=== PATIENT | female | born 1995 | race Caucasian/White ===

== ENCOUNTER 2016-04-10 10:47 | Emergency (ER) | payer MEDICAID, OTHER ==
[~2016-04-10] VITALS: Ht 160 cm; Wt 53.0 kg
[~2016-04-10 10:47] MED LIST: PREN-39 PO
[2016-04-10 11:19] VITALS: Ht 160 cm; Wt 53.0 kg
[2016-04-10] MEDS ORDERED: FLUT9.9S NASAL (12:40)
[2016-04-10] MEDS ORDERED: PSEU30TA38 PO (12:40)
[2016-04-10] MEDS ORDERED: AZIT250T94 PO (12:40)
--- NOTE | 2016-04-10 16:38 | ERD ---
DATE OF SERVICE: 04/10/2016 HISTORY OF PRESENT ILLNESS: The patient is a 20-year-old female coming in complaining of an earache and runny nose. Patient states that she has had a runny nose for the last 2 weeks. She feels mild ly dizzy. She has not had any fevers, no medication for her symptoms. No sore throat, no cough. H as had excessive nasal congestion. PAST MEDICAL HISTORY: Denies any other medical problems. ALLERGIES: PENICILLIN. SURGICAL HISTORY: Denies. SOCIAL HISTORY: Denies. REVIEW OF SYSTEMS: A 12-point review of systems was done. Refer to HPI for positives, all other sy stems negative. PHYSICAL EXAMINATION VITAL SIGNS: Temperature is 98.1, pulse 88, blood pressure 111/62, respiratory 18, O2 saturation 99 % on room air. Pain intensity of 4/10. GENERAL: The patient is well-appearing, well-nourished, no acute distress. HEENT: The patient has congestion noted to her nasal passages. Her right TM is erythematous with m ild bulging. No perforation. No erythema noted to the external ear canal. Oropharynx clear, uvula midline. No erythema, edema or exudate note to the tonsils. NECK: C-spine is soft and supple. There is no meningismus. There is no cervical lymphadenopathy. N o JVD. No bruits. No goiter. CHEST: Clear to auscultation bilaterally. There are no rales, wheezes or rhonchi. HEART: Regular rate and rhythm. No murmurs, clicks, rubs or gallops. No S3 or S4. ABDOMEN: Soft, nontender and nondistended. Good bowel sounds. No rebound or guarding. No gross dorian tonitis. No gross organomegaly or masses. No Taylor sign or McBurney point tenderness. BACK: No midline or flank tenderness. SKIN: There is no apparent rash or petechia. The skin is warm and dry. HEMATOLOGIC AND LYMPHATIC: There is no evidence of excessive bruising or lymphedema. No gross cervi madeline, axillary, or inguinal lymphadenopathy. DIAGNOSES: 1. Earache or ear infection. 2. To sinus congestion. MEDICAL DECISION MAKING: I have low suspicion for ruptured TM. Low suspicion for otitis externa, l ow suspicion for mastoiditis, low suspicion for meningitis or sepsis, low suspicion for pneumonia, l ow suspicion for other bacterial HEENT infection. Patient will be treated with antibiotics for poss ible ear infection and recommended followup with primary care. DISCHARGE: The patient is discharged stable. Patient given prescription for Sudafed, Flonase and a zithromycin and told to follow up with primary care within 1 to 2 days for reevaluation. The patien t was told if symptoms progress or worsen to return to the ER. All other questions answered at time of discharge. Discharge summary given at the time of departure. Patient understood and complied w ith plan. Dictated By: FRANK BANDA for DRE HARDIN/NTS Conf#: [id number] DID#: [id number]
== END 2016-04-10 13:25 | disposition home or self-care (01) ==
LOC: FTE 10:47
DX: H92.01 Otalgia, right ear (principal); R09.81 Nasal congestion
CPT/HCPCS: 99283

== ENCOUNTER 2016-06-12 11:16 | Emergency (ER) | payer OTHER ==
[~2016-06-12] VITALS: Wt 55.5 kg
[~2016-06-12 11:16] MED LIST changes: +AZIT250T94 PO; +FLUT9.9S NASAL; +PSEU30TA38 PO
[2016-06-12] MEDS ORDERED: AZIT250T94 PO (14:20)
[2016-06-12] MEDS ORDERED: TYL500 PO (14:20)
[2016-06-12] MEDS ORDERED: FLUT9.9S NASAL (14:21)
--- NOTE | 2016-06-12 17:43 | ERD ---
ER Documentation Chief Complaint Date/Time DATE: 06/12/16 TIME: 17:42 Chief Complaint COUGH STUFFY NOSE AND RIGHT EAR PAIN FOR A FEW MONTHS. 6 WKS PREG. NO VB/AP HPI This is a 20-year-old female presents to the ER with a cough, stuffy nose and right ear pain. Patient states that she's had a cough and stuffy nose for the last 2 months. Patient developed ear pain 2 days ago. Patient denies any fevers or chills. She denies any chest pain or shortness of breath. Patient is currently 6 weeks she denies any vaginal bleeding or pelvic pain. She denies any urinary frequency and dysuria. ROS 12 point review of systems was done, all negative except per HPI. Medications Home Meds Active Scripts Fluticasone Propionate (Flonase Allergy Relief) 9.9 Ml Hammond.susp, 1 SPRAY NASAL BID, #1 BOTTLE TO EACH NOSTRIL Prov:BRANDON THORPE 06/12/16 Acetaminophen* (Tylenol*) 500 Mg Tab, 1000 MG PO Q8H Y for PAIN AND OR ELEVATED TEMP for 3 Days, TAB Prov:BRANDON THORPE 06/12/16 Azithromycin* (Zithromax*) 250 Mg Tablet, 250 MG PO .ZPACK DIRECTED, #6 TAB TAKE 500 MG (2 TABS) THE FIRST DAY THEN 250 MG (1 TAB) DAYS 2-5 Prov:MAURILIOBRANDON PEREZ Jese 06/12/16 Azithromycin* (Zithromax*) 250 Mg Tablet, 250 MG PO .ZPACK DIRECTED, #6 TAB TAKE 500 MG (2 TABS) THE FIRST DAY THEN 250 MG (1 TAB) DAYS 2-5 Prov:SKYLER HARTLEY PA-C 04/10/16 Pseudoephedrine Hcl* (Pseudoephedrine Hcl*) 30 Mg Tablet, 30 MG PO Q6 Y for CONGESTION, #30 TAB Prov:SKYLER HARTLEY PA-C 04/10/16 Fluticasone Propionate (Flonase Allergy Relief) 9.9 Ml Hammond.susp, 1 SPRAY NASAL DAILY, #1 BOTTLE TO EACH NOSTRIL Prov:SKYLER HARTLEY PA-C 04/10/16 Reported Medications Vits W-Ca,Fe,Fa(<1MG) ( Vitamins) 1 Tab Tablet, 1 TAB PO DAILY for 7 Days 07/15/14 Allergies Allergies: Coded Allergies: Penicillins (Verified Allergy, Unknown, 02/07/14) PMhx/Soc History of Surgery: No Anesthesia Reaction: No Hx Neurological Disorder: No Hx Respiratory Disorders: No Hx Cardiac Disorders: No Hx Psychiatric Problems: No Hx Miscellaneous Medical Probl: No Hx Alcohol Use: No Hx Substance Use: No Hx Tobacco Use: No Physical Exam Vitals Vital Signs Date Time Temp Pulse Resp B/P Pulse Ox O2 Delivery O2 Flow Rate FiO2 06/12/16 11:22 98.8 79 20 121/64 99 Physical Exam GENERAL: The patient is well-developed, well-nourished, in no acute distress. NECK: Cervical spine is non tender with no step off. Supple, no nuchal rigidity HEENT: Atraumatic. Pupils equal, round and reactive to light. Extraocular muscles are grossly intact. Conjunctivae pink, no discharge. Right erythematous tympanic membrane. Tonsilar erythema with no exudates or uvular deviation. Clear rhinorrhea. RESPIRATORY: Clear to auscultation bilaterally. There are no rales, wheezes or rhonchi. HEART: Regular rate and rhythm. No murmurs, clicks, rubs or gallops. EXTREMITIES: No clubbing or cyanosis. Full range of motion. Grossly neurovascularly intact. NEUROLOGIC: Alert and oriented. Cranial nerves II through XII are intact. SKIN: There is no rash. The skin is warm and dry. Procedures/MDM Differential diagnosis includes but is not limited to; Viral URI, allergic rhinitis, bronchitis, pertussis,pneumonia. Off is likely viral in etiology. Clinical suspicion for pneumonia is low as patient appears well, is not hypoxic or in any respiratory distress. Additionally, she does have otitis media. Plan was discussed with patient they understand and agree. Patient needs to follow up with PCP in 1-2 days or return to ER sooner if symptoms worsen. Departure Diagnosis: Primary Impression: Otitis media Condition: Stable Patient Instructions: Otitis Media, Abx Tx (Adult) Additional Instructions: Llame al doctor MAANA y rony dc ABDOULAYE PARA DENTRO DE 1-2 PADILLA.Dgale a la secretaria que nosotros le instruimos hacer esta abdoulaye.Avise o llame si darby condicin se empeora antes de la abdoulaye. Regresa aqui si peor o no mejor. BRANDON THORPE Jun 12, 2016 17:43
== END 2016-06-13 08:24 | disposition home or self-care (01) ==
LOC: E/R 11:16
DX: H66.91 Otitis media, unspecified, right ear (principal)
CPT/HCPCS: 99283

== ENCOUNTER 2017-01-20 00:03 | Inpatient (IN) | payer OTHER ==
[~2017-01-20] VITALS: Ht 157.5 cm; Wt 74.1 kg
[~2017-01-20 00:03] MED LIST changes: +TYL500 PO
[2017-01-20 00:19] VITALS: BP 115/69; PULSE 77; RESP 18
[2017-01-20 00:20] VITALS: Ht 157.5 cm; Wt 74.1 kg
--- NOTE | 2017-01-20 02:15 | TRIAGE ---
OB Triage Datetime Report Generated by CPN: 01/20/2017 02:15 Datetime: 01/20/2017 01:54 Vaginal Exam Dilatation (cms): 2.0 Effacement (%): 70 Datetime: 01/20/2017 01:44 Stage of : Labor Datetime: 01/20/2017 01:37 Membrane Status: Intact Datetime: 01/20/2017 00:39 Category: Category I Datetime: 01/20/2017 00:26 Vaginal Exam Dilatation (cms): 1.0 Effacement (%): 60 Station: -3 Exam By: CYDNEY Vaginal Bleeding: None Cervix, Consistency: Moderate Cervix, Position: Posterior Datetime: 01/20/2017 00:24 Assessment Type: Triage Maternal Assessment Level of Consciousness: Fully Conscious DTR's/Clonus: DTRs 2+; No Clonus Headache: Denies Blurred Vision: No Respiratory Effort: Unlabored; Regular Rhythm; Equal Expansion Breath Sounds, Left: Clear and Equal Breath Sounds, Right: Clear and Equal Nausea/Vomiting: Denies RUQ Epigastric Pain: Denies Facial Edema: None Fall Risk Assessment History of Falling: (0) No Secondary Diagnosis: (0) No Ambulatory Aid: (0) Bedrest/Nurse Assist IV Therapy: (0) No Gait: (0) Normal/Bedrest/Immobile Mental Status: (0) Oriented to Own Ability Fall Score: 0 Fall Risk Score Definition: No Risk: No action required Comment: PRESENTED TO TRIAGE TO R_O LABOR, UC'S SINCE 1599. DENIES LEAKING OR BLEEDING. FOB AT BED SIDE, CALL LIGHT WITHIN REACH. Datetime: 01/20/2017 00:22 Time of Arrival: 01/20/2017 00:00 EGA: 38.1 Arrived By: Wheelchair Arrived From: Home Chief Complaint: UC'S SINCE 1599 Movement: Present Contractions: Irregular Time Contractions Began: 01/19/2017 16:00 Rupture of Membranes: Denies Vaginal Bleeding: None Vaginal Discharge: Denies Recent Sexual Intercouse: Denies Abdominal Trauma: Not Applicable Patient Complaints: Contractions Time Provider Notified: 01/20/2017 00:33 Provider Notified: Initial Plan: EFM, VE, ADMIT TO L_D Datetime: 01/20/2017 00:19 Labor Evaluation Monitor Mode: External Quality: Mild Resting Tone [place]: Relaxed Contraction Comments: TOCO APPLIED TO ABDOMEN Heart Rate FHR Baseline Rate: 135 Monitor Mode: External US Comments: PLACED ON EFM
[2017-01-20] MEDS ORDERED: OXYTOCIN 30 UNITS/LR 500 ML IV SCH ×3 (02:30)
[2017-01-20] MEDS ORDERED: OXYTOCIN 30 UNITS/LR 500 ML IV PRN ×2 (02:30→19:00)
[2017-01-20] MEDS ORDERED: METHYLERGONOVINE 0.2 MG INJ IM PRN ×2 (02:30→19:00)
[2017-01-20] MEDS ORDERED: CARBOPROST 250 MCG INJ IM PRN ×2 (02:30→19:00)
[2017-01-20] MEDS ORDERED: LIDOCAINE 1% (MPF) 30 ML INJ INJ PRN (02:30)
[2017-01-20] MEDS ORDERED: MISOPROSTOL 200 MCG TAB PR PRN ×2 (02:30→19:00)
[2017-01-20] MEDS ORDERED: BUTORPHANOL 2 MG INJ IV PRN (02:30)
[2017-01-20] MEDS ORDERED: IBUPROFEN 600 MG TAB PO PRN (02:30)
[2017-01-20] MEDS ORDERED: LACTATED RINGER'S 1,000 ML IV PRN (02:30)
[2017-01-20] MEDS: LACTATED RINGER'S 1,000 ML IV SCH ×3 (03:30→13:29)
[2017-01-20 04:31] LABS: BASOPHILS % 0.3 % (0.0-2.0); EOSINOPHILS # 0.1 10^3/ul (0.0-0.5); EOSINOPHILS % 0.8 % (0.0-7.0); HEMATOCRIT 37.7 % (37.0-47.0); HEMOGLOBIN 12.6 g/dl (12.0-16.0); LYMPHOCYTES # 2.3 10^3/ul (0.8-2.9); LYMPHOCYTES % 21.6 % (15.0-51.0); MEAN CORPUSCULAR HEMOGLOBIN 30.8 pg (29.0-33.0); MEAN CORPUSCULAR HGB CONC 33.4 g/dl (32.0-37.0); MEAN CORPUSCULAR VOLUME 92.2 fl (82.0-101.0); MEAN PLATELET VOLUME 10.2 fl (7.4-10.4); MONOCYTE # 0.8 10^3/ul (0.3-0.9); NEUTROPHIL # 7.5 10^3/ul (1.6-7.5); NEUTROPHILS % 69.3 % (39.0-77.0); PLATELET COUNT 255 10^3/UL (140-415); RED BLOOD COUNT 4.09 10^6/ul (4.20-5.40); RED CELL DISTRIBUTION WIDTH 13.1 % (11.5-14.5); WHITE BLOOD COUNT 10.8 10^3/ul (4.8-10.8)
[2017-01-20 04:45] LABS: INR 0.91; PROTIME 12.2 Sec (12.2-14.2)
[2017-01-20] MEDS ORDERED: FENTAnyl 2MCG/ML-ROPIV 0.2% 100 ML ONE (06:09)
--- NOTE | 2017-01-20 08:41 | HP ---
Date/Time of Note Date/Time of Note DATE: 01/20/17 TIME: 08:40 OB - History Hx of Present Chief Complaint: contractions Estimated Due Date: Feb 01, 2017 : 2 Para: 1 Spontaneous : 0 Therapeutic : 0 Care: Good Care Ultrasounds: Normal mid trimester US Obstetrical Complications: None Medical Complications: None Past Family/Social History * Past Medical, Surgical, Family and Obstetric Histories reviewed from chart. GBS Status: Negative OB Admission Exam Vital Signs Vital Signs Vital Signs Date Time Temp Pulse Resp B/P Pulse Ox O2 Delivery O2 Flow Rate FiO2 01/20/17 00:19 98.0 77 18 115/69 Room Air Physical Exam HEENT: WNL Heart: Rhythm Normal Lungs: Clear, Equal Abdomen: WNL Extremities: Normal Reflexes: Normal Cervical Dilatation: 2cm Effacement: 50% Station: -1 Membranes: Intact Heart Rate: 130's Accelerations: Accelerations Present Decelerations: No Decelerations Varibility: Moderate Last 72 hours Lab Results CBC & BMP 01/20/17 03:25 OB Assessment/Plan Reason for admission: active labor Plan: Expectant Management DILIP CRONIN MD Jan 20, 2017 08:41
[2017-01-20] MEDS ORDERED: FENTAnyl 2MCG/ML-ROPIV 0.2% 100 ML BAG EPI SCH (13:30)
[2017-01-20] MEDS ORDERED: HYDROmorphONE 0.5 MG/0.5 ML SYG IV PRN ×2 (13:30)
[2017-01-20] MEDS ORDERED: ONDANSETRON 4 MG INJ IV PRN (13:30)
[2017-01-20] MEDS ORDERED: NALOXONE (0.4 MG/ML) INJ IV PRN (13:30)
[2017-01-20] MEDS ORDERED: KETOROLAC 30 MG INJ IV PRN (13:30)
[2017-01-20] MEDS ORDERED: LACTATED RINGER'S 1,000 ML IV* SCH (18:41)
--- NOTE | 2017-01-20 18:41 | LDN ---
Date/Time of Note Date/Time of Note DATE: 01/20/17 TIME: 18:39 Delivery Summary Placenta Delivered: Spontaneously Meconium: none Episiotomy: No Perineal laceration: 1 Laceration repair: First degree laceration repaired with 3-0 Vicryl Anesthesia type: Epidural Estimated blood loss: 100 Sponge & Needle done & correct: Yes All needle counts correct: Yes Any foreign bodies felt in the: No Problems: Delivery Information Sex Infant Sex: male Apgars 1 Minute: 9 5 Minute: 9 Suctioning Nose & mouth suctioned at dorian: Yes Delee suction performed: No Umbilical Cord Umbilical cord with: 3 Vessels Cord presentations: no nuchal cord Cord Blood was obtained: Yes Mother & Baby Disposition Disposition Mom & Baby to Maternity; Good: Yes DILIP CRONIN MD Jan 20, 2017 18:41
[2017-01-20] MEDS ORDERED: WITCH HAZEL/GLYCERIN PAD PR PRN (19:00)
[2017-01-20] MEDS ORDERED: BENZOCAINE 20% 56 ML SPRAY TOP PRN (19:00)
[2017-01-20] MEDS ORDERED: ACETAMINOPHEN 325 MG TAB PO PRN (19:00)
[2017-01-20] MEDS ORDERED: DIBUCAINE 1% 30 GM OINT PR PRN (19:00)
[2017-01-20] MEDS ORDERED: LANOLIN 7 GM TUBE TOP PRN (19:00)
[2017-01-20] MEDS ORDERED: HYDROCODONE/APAP (5/325) TAB PO PRN (19:00)
[2017-01-20] MEDS: IBUPROFEN 600 MG TAB PO SCH (19:21)
[2017-01-20 21:00] VITALS: BP 112/74; PULSE 68; RESP 18
[2017-01-20] MEDS: SENNA/DOCUSATE NA (8.6MG/50MG) TAB PO SCH (21:46)
[2017-01-21 04:10] VITALS: BP 98/55; PULSE 70; RESP 18
[2017-01-21] MEDS: IBUPROFEN 600 MG TAB PO SCH ×3 (05:39→18:09)
[2017-01-21 08:21] VITALS: BP 99/53; PULSE 68; RESP 16
[2017-01-21] MEDS: SENNA/DOCUSATE NA (8.6MG/50MG) TAB PO SCH ×2 (08:50→21:41)
[2017-01-21 10:46] LABS: BASOPHIL # 0.1 10^3/ul (0.0-0.1); BASOPHILS % 0.3 % (0.0-2.0); EOSINOPHILS # 0.2 10^3/ul (0.0-0.5); EOSINOPHILS % 1.5 % (0.0-7.0); HEMATOCRIT 32.6 % (37.0-47.0); HEMOGLOBIN 11.1 g/dl (12.0-16.0); LYMPHOCYTES # 2.2 10^3/ul (0.8-2.9); LYMPHOCYTES % 15.6 % (15.0-51.0); MEAN CORPUSCULAR HEMOGLOBIN 31.3 pg (29.0-33.0); MEAN CORPUSCULAR VOLUME 91.8 fl (82.0-101.0); MEAN PLATELET VOLUME 9.5 fl (7.4-10.4); MONOCYTE # 0.9 10^3/ul (0.3-0.9); MONOCYTES % 6.1 % (0.0-11.0); NEUTROPHIL # 10.8 10^3/ul (1.6-7.5); NEUTROPHILS % 75.4 % (39.0-77.0); PLATELET COUNT 192 10^3/UL (140-415); RED BLOOD COUNT 3.55 10^6/ul (4.20-5.40); WHITE BLOOD COUNT 14.3 10^3/ul (4.8-10.8)
[2017-01-21 16:44] VITALS: BP 97/55; PULSE 71; RESP 16
--- NOTE | 2017-01-21 20:00 | DS ---
Date/Time of Note Date/Time of Note DATE: 01/21/17 TIME: 19:59 Obstetrical Discharge Record Final Diagnosis Final Diagnosis: Term delivered Vaginal Delivery Obstetrical Delivery: Spontaneous Condition on Discharge Physical Assessment Voiding: Yes Bowel Movement: Yes Breast: Soft, non-tender, Filling Fundus: Firm Calf Tenderness: No Patient Condition: Stable DILIP CRONIN MD Jan 21, 2017 19:59
[2017-01-21 20:59] VITALS: BP 107/64; PULSE 58; RESP 21
[2017-01-22] MEDS: IBUPROFEN 600 MG TAB PO SCH ×3 (01:02→12:02)
[2017-01-22 04:00] VITALS: BP 107/67; PULSE 65; RESP 20
[2017-01-22 08:00] VITALS: BP 104/61; PULSE 65; RESP 18
[2017-01-22] MEDS ORDERED: INFLUENZA VIRUS VACCINE 0.5 ML (DISPENSING) IM* ONE (09:00)
[2017-01-22] MEDS: SENNA/DOCUSATE NA (8.6MG/50MG) TAB PO SCH (09:00)
[2017-01-22] MEDS ORDERED: DIPHTH/TET/ACEL PERTUSS (ADULT) 0.5 ML VIAL IM* ONE (09:00)
== END 2017-01-22 13:50 | disposition home or self-care (01) | DRG 775 ==
LOC: OBT 00:03 → L-D 00:05 → OBT 01:50 → PP1 21:02
PROVIDERS: ADMIT Obstetrics & Gynecology; ATTEND Obstetrics & Gynecology
PROC: 10E0XZZ Delivery of Products of Conception, External Approach (ICD-10-PCS; principal; 2017-01-20)
PROC: 0HQ9XZZ Repair Perineum Skin, External Approach (ICD-10-PCS; 2017-01-20)
PROC: 3E0234Z Introduction of Serum, Toxoid and Vaccine into Muscle, Percutaneous Approach (ICD-10-PCS; 2017-01-22)
DX: O70.0 First degree perineal laceration during delivery (principal); Z23 Encounter for immunization; Z37.0 Single live birth; Z3A.38 38 weeks gestation of pregnancy
CPT/HCPCS: 62319; 85025; 85610; 85730; 86592; 86850; 86885; 86900; 86901; 87340; 90686; 90715; G0463; J2590; J2790; J3010; J7120

== ENCOUNTER 2017-05-31 14:25 | Emergency (ER) | END 2017-05-31 19:46 | disposition home or self-care (01) ==